=== PATIENT | male | born 1990 | race Two or more races ===

== ENCOUNTER 2017-10-06 22:37 | Emergency (ER) | payer OTHER ==
[~2017-10-06] VITALS: Ht 170.2 cm; Wt 70.0 kg
[2017-10-06 22:41] VITALS: BP 151/88
[2017-10-07] MEDS ORDERED: IBUPROFEN 800 MG TAB PO ONE (00:15)
[2017-10-07] MEDS ORDERED: METHOCARBAMOL 500 MG TAB PO ONE (00:15)
--- NOTE | 2017-10-07 01:40 | REPUSA ---
CLINICAL HISTORY: Neck pain. TECHNIQUE: Multiple axial images were obtained through the cervical spine. Images were also reconstru cted in coronal and sagittal planes. The study was performed without IV contrast. COMMENTS: There is no fracture or spondylolisthesis visualized. The paraspinal soft tissues are unremarkable. T here are no lytic or blastic lesions. Straightening of cervical lordosis is seen, suggesting muscular spasm. There is evidence of minimal m ultilevel disk disease, demonstrated by minimal osteophytosis and endplate sclerosis. No significant disk herniation is noted at any level. Canal and foramina remain patent. IMPRESSION: 1. No fracture or spondylolisthesis. 2. Straightening of cervical lordosis is seen, suggesting muscular spasm. 3. Minimal multilevel spondylosis. Thank you for your kind referral of this patient.
[2017-10-07] MEDS ORDERED: ROBA500T PO (01:44)
[2017-10-07] MEDS ORDERED: IBUP80TA PO (01:44)
== END 2017-10-07 01:51 | disposition home or self-care (01) ==
LOC: M ED 22:37
DX: S16.1XXA Strain of muscle, fascia and tendon at neck level, initial encounter (principal); S29.012A Strain of muscle and tendon of back wall of thorax, initial encounter; Z72.0 Tobacco use; V49.40XA Driver injured in collision with unspecified motor vehicles in traffic accident, initial encounter; Y92.410 Unspecified street and highway as the place of occurrence of the external cause; Y93.89 Activity, other specified; Y99.9 Unspecified external cause status